=== PATIENT | male | born 1980 | race Caucasian/White ===

== ENCOUNTER 2024-04-27 19:24 | Inpatient (IN) | payer SELFPAY ==
[~2024-04-27] VITALS: Ht 175.3 cm; Wt 70.8 kg
[2024-04-27 19:27] VITALS: O2SAT 98
[2024-04-27] MEDS: SODIUM CHLORIDE 0.9% 1,000 ML IV ONE (21:00)
[2024-04-27 21:08] LABS: DIFFERENTIAL COMMENT 1; HEMATOCRIT. 48.6 % (42.0-52.0); HEMOGLOBIN. 16.5 g/dL (14.0-18.0); MEAN CORPUSCULAR HEMOGLOBIN 29.8 pg (28.0-32.0); MEAN CORPUSCULAR VOLUME 87.8 fL (80.0-94.0); PLATELET 109 x1000/uL (130-400); RED BLOOD CELL COUNT 5.53 mill/uL (4.7-6.1); RED CELL DISTRIBUTION WIDTH 13.6 % (11.6-14.6); WHITE BLOOD COUNT 14.5 x1000/uL (4.5-11.0)
[2024-04-27 21:14] LABS: CHLORIDE 103 mEq/L (98-107); POTASSIUM 3.5 mEq/L (3.5-5.1); SODIUM 134 mEq/L (136-145)
[2024-04-27 21:15] LABS: CALCIUM 8.6 mg/dL (8.7-10.4); CARBON DIOXIDE 23 mEq/L (21-32)
[2024-04-27 21:16] LABS: INR 1.2; PROTHROMBIN TIME 13.5 sec (9.6-11.0)
[2024-04-27 21:20] LABS: CREATININE 1.4 mg/dL (0.6-1.3); GLUCOSE 226 mg/dL (70-105); UREA NITROGEN BLOOD 24 mg/dL (9-23)
[2024-04-27 21:21] LABS: TROPONIN I HIGH SENSITIVITY 48 ng/L (3.0-53)
[2024-04-27 21:22] LABS: ALANINE AMINOTRANSFERASE 53 IU/L (10-49); ALBUMIN 3.6 g/dL (3.2-4.8); ASPARTATE AMINOTRANSFERASE 67 IU/L (<34); BILIRUBIN DIRECT 0.6 mg/dL (<=3.0)
[2024-04-27 21:23] LABS: BETA HYDROXYBUTYRATE 0.1 mMol/L (0.0-0.3); BILIRUBIN TOTAL 1.4 mg/dL (0.1-1.0); PROTEIN TOTAL 6.6 g/dL (6.0-8.3)
[2024-04-27 21:25] LABS: ETHANOL BLOOD < 10 mg/dL (<10)
[2024-04-27] MEDS: SODIUM CHLORIDE 0.9% (SEPSIS BOLUS) IV ONE (21:49)
[2024-04-27] MEDS: CEFTRIAXONE 1GM/50ML 50 ML IV ONE (21:53)
[2024-04-27] MEDS: ACETAMINOPHEN 1000MG/100ML 100 ML IV ONE (22:05)
[2024-04-27 22:25] LABS: PLATELET ESTIMATE DECREASED
[2024-04-28 02:20] VITALS: BP 132/83; PULSE 89; RESP 18; TEMP 36.61404; TEMP 36.6404; O2SAT 97
[2024-04-28] MEDS ORDERED: GUAIFENESIN 200MG/10ML SUGAR FREE UDC PO PRN (03:15)
[2024-04-28] MEDS ORDERED: DOCUSATE SODIUM 100MG CAPSULE PO PRN (03:15)
[2024-04-28] MEDS ORDERED: ONDANSETRON HCL 4MG/2ML INJ IV PRN (03:15)
[2024-04-28] MEDS ORDERED: CLONIDINE 0.1MG TABLET PO PRN (03:15)
[2024-04-28] MEDS ORDERED: IPRATROPIUM/ALBUTEROL 0.5-3(2.5)MG/3ML NEB HHN PRN (03:15)
[2024-04-28] MEDS ORDERED: DEXTROSE 50% WATER 50ML SYRINGE IV PRN (03:15)
[2024-04-28] MEDS ORDERED: KCL 10MEQ/50ML PREMIX 50 ML IV ONE (03:15)
[2024-04-28] MEDS ORDERED: ACETAMINOPHEN 325MG TABLET PO PRN (03:15)
[2024-04-28] MEDS ORDERED: MAGNESIUM/ALUMINUM HYDROXIDE/SIMETHICONE 30ML UDC PO PRN (03:15)
[2024-04-28 04:00] VITALS: BP 123/80; PULSE 99; RESP 20; TEMP 37.16964; O2SAT 98
[2024-04-28] MEDS: SODIUM CHLORIDE 0.45% 1,000 ML IV SCH (04:26)
[2024-04-28] MEDS: KCL 20MEQ/100ML PREMIX 100 ML IV NR (04:26)
[2024-04-28] MEDS: VANCOMYCIN 1.5GM/250ML IV NR (06:13)
[2024-04-28] MEDS: BLOOD SUGAR DIAGNOSTIC STRIP TEST SCH (06:31)
[2024-04-28] MEDS: INSULIN LISPRO 100 UNITS/ML SUBCUT SCH (07:15)
[2024-04-28] MEDS: PIPERACILLIN/TAZO 3.375G/50ML 50 ML IV SCH (07:23)
[2024-04-28 08:00] VITALS: BP 147/92; PULSE 108; RESP 18; TEMP 36.44736; O2SAT 98
[2024-04-28] MEDS: LACTATED RINGERS 1,000 ML IV SCH (08:00)
[2024-04-28] MEDS: FOLIC ACID 1MG TABLET PO SCH (10:33)
[2024-04-28] MEDS: THIAMINE HCL 100MG TABLET PO SCH (10:33)
[2024-04-28] MEDS: PANTOPRAZOLE SODIUM 40 MG/VIAL IV SCH (10:33)
[2024-04-28 12:00] VITALS: BP 153/99; PULSE 94; RESP 18; TEMP 36.3918; O2SAT 98
[2024-04-28 13:31] LABS: TROPONIN I HIGH SENSITIVITY 36 ng/L (3.0-53)
[2024-04-28 13:32] LABS: CREATINE KINASE 108 IU/L (46-171); PHOSPHORUS 1.6 mg/dL (2.5-4.9)
[2024-04-28 13:33] LABS: AMMONIA 25 uMol/L (<32)
[2024-04-28 15:05] LABS: CREATINE KINASE 98 IU/L (46-171)
[2024-04-28 16:00] VITALS: BP 165/106; PULSE 104; RESP 18; TEMP 36.83628
[2024-04-28] MEDS: POTASSIUM PHOSPHATE 20 MMOL in DEXT 5% WATER 243.3333 ML IV SCH (16:15)
[2024-04-28 17:16] LABS: *AMPHETAMINES SCREEN URINE PRESUMPTIVE POSITIVE (NEGATIVE); *BARBITURATES SCREEN URINE NEGATIVE (NEGATIVE); *BENZODIAZEPINES SCREEN URINE NEGATIVE (NEGATIVE); *COCAINE SCREEN URINE NEGATIVE (NEGATIVE)
[2024-04-28 17:17] LABS: CANNABINOID URINE SCREEN NEGATIVE (NEGATIVE); ECSTASY MDMA SCREEN URINE CONF.TEST INDICATED (NEGATIVE); METHADONE URINE SCREEN NEGATIVE (NEGATIVE); OPIATES URINE SCREEN NEGATIVE (NEGATIVE); PHENCYCLIDINE URINE SCREEN NEGATIVE (NEGATIVE)
[2024-04-28 17:27] LABS: CLARITY URINE CLEAR (CLEAR); COLOR URINE DARK YELLOW (YELLOW); PH URINE 5.5 (4.5-8.0); PROTEIN URINE 2+ (NEGATIVE); SPECIFIC GRAVITY URINE 1.021 (1.005-1.030)
[2024-04-28 17:28] LABS: GLUCOSE URINE 2+ (NEGATIVE); KETONES URINE TRACE (NEGATIVE)
[2024-04-28 17:29] LABS: LEUKOCYTE ESTERASE URINE NEGATIVE (NEGATIVE); NITRITE URINE NEGATIVE (NEGATIVE); OCCULT BLOOD URINE NEGATIVE (NEGATIVE)
[2024-04-28 17:33] LABS: BACTERIA URINE 1+; RBC URINE NONE SEEN /hpf (0-2); SQUAMOUS EPITHELIAL CELL URINE FEW /lpf (RARE/1+); WBC URINE 0-2 /hpf (0-2)
[2024-04-28] MEDS: VANCOMYCIN 750MG/150ML (BAXTER) IV SCH (18:36)
[2024-04-28] MEDS: MAGNESIUM 2 G PREMIX 50 ML IV SCH (19:09)
[2024-04-28 20:00] VITALS: BP 142/106; PULSE 98; RESP 18; TEMP 36.16956; O2SAT 97
[2024-04-28] MEDS: PNEUMOCOCCAL 20-VAL CONJ-DIP CRM 0.5ML IM ONE (22:32)
[2024-04-28] MEDS: INFLUENZA VACCINE 05/PF 0.5 ML SYRINGE IM ONE (22:34)
[2024-04-29] VITALS: BP 140/98; PULSE 94; RESP 18; TEMP 36.44736; O2SAT 96
[2024-04-29 04:00] VITALS: BP 138/101; PULSE 89; RESP 18; TEMP 37.05852; O2SAT 97
[2024-04-29 06:21] LABS: CHLORIDE 104 mEq/L (98-107); SODIUM 135 mEq/L (136-145)
[2024-04-29 06:22] LABS: CALCIUM 8.3 mg/dL (8.7-10.4); CARBON DIOXIDE 23 mEq/L (21-32)
[2024-04-29 06:27] LABS: CREATININE 0.9 mg/dL (0.6-1.3); GLUCOSE 220 mg/dL (70-105); TRIGLYCERIDE 198 mg/dL (0-150); UREA NITROGEN BLOOD 12 mg/dL (9-23)
[2024-04-29 06:28] LABS: LDL CHOLESTEROL 37 mg/dL (5-100); PROTEIN TOTAL 6.2 g/dL (6.0-8.3)
[2024-04-29 06:29] LABS: ALANINE AMINOTRANSFERASE 48 IU/L (10-49); ALBUMIN 3.3 g/dL (3.2-4.8); ASPARTATE AMINOTRANSFERASE 47 IU/L (<34); BILIRUBIN DIRECT 0.4 mg/dL (<=3.0); CHOLESTEROL 87 mg/dL (<200); HDL CHOLESTEROL < 20 mg/dL (>55); PHOSPHORUS 1.8 mg/dL (2.5-4.9)
[2024-04-29 06:30] LABS: BILIRUBIN TOTAL 0.8 mg/dL (0.1-1.0); T4 FREE 1.11 ng/dL (0.89-1.76); THYROID STIMULATING HORMONE 1.71 uIU/mL (0.55-4.78)
[2024-04-29 07:51] LABS: BASOPHILS % 0.5 % (0.0-2.0); EOSINOPHILS % 0.9 % (0.0-5.0); HEMATOCRIT. 44.5 % (42.0-52.0); MEAN CORPUSCULAR HEMOGLOBIN 29.5 pg (28.0-32.0); MEAN CORPUSCULAR HGB CONC 33.6 g/dL (31.0-37.0); MEAN CORPUSCULAR VOLUME 87.7 fL (80.0-94.0); MEAN PLATELET VOLUME 11.8 fl (7.4-10.4); MONOCYTES % 8.9 % (2.0-8.0); NEUTROPHILS % 72.7 % (40.0-76.0); PLATELET 82 x1000/uL (130-400); RED BLOOD CELL COUNT 5.08 mill/uL (4.7-6.1); RED CELL DISTRIBUTION WIDTH 13.8 % (11.6-14.6); WHITE BLOOD COUNT 5.6 x1000/uL (4.5-11.0)
[2024-04-29 08:00] VITALS: BP 144/90; PULSE 86; RESP 14; TEMP 37.55856; O2SAT 99
[2024-04-29] MEDS: AMLODIPINE 5MG TABLET PO SCH (08:43)
[2024-04-29] MEDS: POTASSIUM PHOSPHATE 20 MMOL in DEXT 5% WATER 243.3333 ML IV NR (10:00)
[2024-04-29] MEDS: INSULIN GLARGINE 100 UNITS/ML SUBCUT SCH (10:13)
[2024-04-29 12:00] VITALS: BP 135/75; PULSE 86; RESP 18; TEMP 37.55856; O2SAT 99
[2024-04-29] MEDS: FAMOTIDINE 20MG TABLET PO SCH (13:18)
[2024-04-29 16:00] VITALS: BP 156/74; PULSE 88; RESP 18; TEMP 36.55848; O2SAT 99
[2024-04-29] MEDS ORDERED: FAMOTIDINE 20MG TABLET PO SCH (21:00)
[2024-04-30] MEDS ORDERED: LISINOPRIL 10MG TABLET PO SCH (09:00)
== END 2024-04-29 18:25 | disposition left against medical advice (07) | DRG 720 ==
LOC: EDSEX 19:24 → ER 20:28 → 5WST 04-28 00:30
PROVIDERS: ADMIT Preventive Medicine Clinical Informatics; ATTEND Preventive Medicine Clinical Informatics
DX: A41.9 Sepsis, unspecified organism (principal); G92.8 Other toxic encephalopathy; N17.9 Acute kidney failure, unspecified; E87.1 Hypo-osmolality and hyponatremia; E83.39 Other disorders of phosphorus metabolism; R65.20 Severe sepsis without septic shock; E87.6 Hypokalemia; E78.1 Pure hyperglyceridemia; E83.42 Hypomagnesemia; I12.9 Hypertensive chronic kidney disease with stage 1 through stage 4 chronic kidney disease, or unspecified chronic kidney disease; Z53.29 Procedure and treatment not carried out because of patient's decision for other reasons; R74.01 Elevation of levels of liver transaminase levels; R74.8 Abnormal levels of other serum enzymes; E80.6 Other disorders of bilirubin metabolism; E11.65 Type 2 diabetes mellitus with hyperglycemia; N18.9 Chronic kidney disease, unspecified; F15.10 Other stimulant abuse, uncomplicated; Z91.148 Patient's other noncompliance with medication regimen for other reason; Z79.4 Long term (current) use of insulin; Z79.899 Other long term (current) drug therapy
CPT/HCPCS: 36415; 71045; 80048; 80061; 80076; 80305; 80320; 81003; 82010; 82140; 82550; 82962; 83036; 83605; 83735; 84100; 84145; 84439; 84443; 84484; 85025; 86705; 90686; 90732; 93005; 93970; 99291; J0696; J1815; J2470; J2543; J3370; J3475; J3480; J3490; J7030; J7060; J7120; G0480; J0131